=== PATIENT | male | born 1955 | race Caucasian/White ===

== ENCOUNTER → 2016-06-01 | Outpatient (CLI) | payer OTHER ==
[~2016-06-01] MED LIST: ADVIL200 MG PO; ALLOPURINOL300 MG PO; AMLODIPINE BESY10 MG PO; AZITHROMYCIN500 M1 PO; BENZONATATE100 MG PO; CEFTIN500 MG PO; CLONIDINE HCL0.1 MG PO; LANSOPRAZOLE30 MG PO; PRAVACHOL80 MG PO; PRAVASTATIN SOD80 MG PO; TEMOVATE 0.05%30 GM TP; VENTOLIN HFA18 GM IH
== END | disposition home or self-care (01) ==
LOC: RES 08:47
DX: J45.909 Unspecified asthma, uncomplicated (principal)
CPT/HCPCS: 94060; 94726; 94729

== ENCOUNTER 2017-11-07 03:26 | Emergency (ER) | payer OTHER ==
[~2017-11-07] VITALS: Ht 177.8 cm; Wt 133.4 kg
[2017-11-07 03:53] LABS: HEMATOCRIT 46.6 % (38.0-50.0); MCH 29.9 PG (29.0-34.0); MCHC 34.3 G/DL (30.0-36.0); MCV 87.1 FL (86-99); PLATELET COUNT 273 K/uL (156-360); RBC DIS.WIDTH-CV 13.6 % (11.8-14.6); RBC DIS.WIDTH-SD 42.6 % (39-53); RED BLOOD COUNT 5.35 M/uL (4.00-5.50); WHITE BLOOD COUNT 18.4 K/uL (4.1-10.2)
[2017-11-07 04:01] LABS: ALBUMIN 4.5 g/dL (3.2-4.8); CHLORIDE 103 mEq/L (99-109); POTASSIUM 4.4 mEq/L (3.7-5.4); SODIUM 139 mEq/L (136-147)
[2017-11-07 04:03] LABS: GLUCOSE 156 mg/dL (70-99)
[2017-11-07 04:04] LABS: TOTAL PROTEIN 7.8 g/dL (6.4-8.3)
[2017-11-07 04:05] LABS: TOTAL BILIRUBIN 0.4 mg/dL (0.0-1.0)
[2017-11-07 04:07] LABS: ALKALINE PHOSPHATASE 114 IU/L (3-129); CREATININE 1.4 mg/dL (0.6-1.3); GFR ESTIMATE (CALCULATED) 55 mL/min/ (58.99-99999)
[2017-11-07 04:08] LABS: UREA NITROGEN (BUN) 33 mg/dL (9-23)
[2017-11-07 04:09] LABS: AST (GOT) 20 IU/L (2-34)
[2017-11-07 04:10] LABS: ALT (GPT) 28 IU/L (3-49); LIPASE 25 U/L (1.0-51.0)
[2017-11-07 04:16] LABS: TROP-I INTERPRETATION NEGATIVE; TROPONIN-I 0.06 ng/mL (0.0-0.30)
[2017-11-07 07:14] VITALS: BP 133/83
== END 2017-11-07 07:17 | disposition short-term general hospital (02) ==
LOC: EME → EDBD 03:26 → EME 03:26
PROVIDERS: Emergency Medicine
DX: I31.2 Hemopericardium, not elsewhere classified (principal); R07.9 Chest pain, unspecified; I31.3 Pericardial effusion (noninflammatory); Z95.0 Presence of cardiac pacemaker; E11.9 Type 2 diabetes mellitus without complications; F41.9 Anxiety disorder, unspecified; I10 Essential (primary) hypertension; J45.909 Unspecified asthma, uncomplicated; Z88.8 Allergy status to other drugs, medicaments and biological substances; K21.9 Gastro-esophageal reflux disease without esophagitis; M10.9 Gout, unspecified
CPT/HCPCS: 71045; 71275; 80047; 80053; 83690; 84484; 85027; 85610; 85730; 86850; 86900; 86901; 93005; 99281; 99285; J2270; J7070